=== PATIENT | male | born 1955 | race American Indian/Alaskan Native ===

== ENCOUNTER 2021-07-08 15:02 | Outpatient (CLI) | payer MEDICARE ==
[2021-07-08 15:57] LABS: INR 1.48 (0.87-1.13)
== END 2021-07-08 15:03 | disposition home or self-care (01) ==
LOC: LAB 15:02
PROVIDERS: ATTEND Internal Medicine Cardiovascular Disease
DX: I48.0 Paroxysmal atrial fibrillation (principal); Z79.01 Long term (current) use of anticoagulants
CPT/HCPCS: 36415; 85610

== ENCOUNTER 2021-07-12 08:42 | Outpatient (CLI) | payer MEDICARE ==
[2021-07-12 09:36] LABS: INR 1.66 (0.87-1.13)
== END 2021-07-12 08:43 | disposition home or self-care (01) ==
LOC: LAB 08:42
PROVIDERS: ATTEND Internal Medicine Cardiovascular Disease
DX: I48.0 Paroxysmal atrial fibrillation (principal); Z79.899 Other long term (current) drug therapy
CPT/HCPCS: 36415; 85610

== ENCOUNTER 2021-07-18 15:34 | Outpatient (CLI) | payer MEDICARE ==
[2021-07-18 16:07] LABS: INR 2.14 (0.87-1.13)
== END 2021-07-18 15:35 | disposition home or self-care (01) ==
LOC: LAB 15:34
PROVIDERS: ATTEND Internal Medicine Cardiovascular Disease
DX: I48.0 Paroxysmal atrial fibrillation (principal); Z79.01 Long term (current) use of anticoagulants
CPT/HCPCS: 36415; 85610

== ENCOUNTER 2021-07-23 13:31 | Outpatient (CLI) | payer MEDICARE ==
[2021-07-23 14:17] LABS: INR 2.71 (0.87-1.13)
== END 2021-07-23 13:32 | disposition home or self-care (01) ==
LOC: LAB 13:31
PROVIDERS: ATTEND Internal Medicine Cardiovascular Disease
DX: I48.0 Paroxysmal atrial fibrillation (principal); Z79.01 Long term (current) use of anticoagulants
CPT/HCPCS: 36415; 85610

== ENCOUNTER 2021-07-30 15:54 | Outpatient (CLI) | payer MEDICARE ==
[2021-07-30 16:29] LABS: INR 2.86 (0.87-1.13)
== END 2021-07-30 15:55 | disposition home or self-care (01) ==
LOC: LAB 15:54
PROVIDERS: ATTEND Internal Medicine Cardiovascular Disease
DX: I48.0 Paroxysmal atrial fibrillation (principal); Z79.01 Long term (current) use of anticoagulants
CPT/HCPCS: 36415; 85610

== ENCOUNTER 2021-08-07 09:34 | Outpatient (CLI) | payer MEDICARE ==
[2021-08-07 09:59] LABS: INR 2.07 (0.87-1.13)
== END 2021-08-07 09:35 | disposition home or self-care (01) ==
LOC: LAB 09:34
PROVIDERS: ATTEND Internal Medicine Cardiovascular Disease
DX: I48.0 Paroxysmal atrial fibrillation (principal); Z79.01 Long term (current) use of anticoagulants
CPT/HCPCS: 36415; 85610

== ENCOUNTER 2021-08-15 15:31 | Outpatient (CLI) | payer MEDICARE ==
[2021-08-15 16:02] LABS: INR 2.72 (0.87-1.13)
== END 2021-08-15 15:32 | disposition home or self-care (01) ==
LOC: LAB 15:31
PROVIDERS: ATTEND Internal Medicine Cardiovascular Disease
DX: I48.0 Paroxysmal atrial fibrillation (principal); Z79.01 Long term (current) use of anticoagulants
CPT/HCPCS: 36415; 85610

== ENCOUNTER 2021-08-19 11:36 | Outpatient (CLI) | payer MEDICARE ==
[2021-08-19 12:32] LABS: INR 3.17 (0.87-1.13)
== END 2021-08-19 11:37 | disposition home or self-care (01) ==
LOC: LAB 11:36
PROVIDERS: ATTEND Internal Medicine Cardiovascular Disease
DX: I48.0 Paroxysmal atrial fibrillation (principal); Z79.01 Long term (current) use of anticoagulants
CPT/HCPCS: 36415; 85610

== ENCOUNTER 2021-08-26 09:29 | Outpatient (CLI) | payer MEDICARE ==
[2021-08-26 10:05] LABS: INR 3.26 (0.87-1.13)
== END 2021-08-26 09:30 | disposition home or self-care (01) ==
LOC: LAB 09:29
PROVIDERS: ATTEND Internal Medicine Cardiovascular Disease
DX: I48.0 Paroxysmal atrial fibrillation (principal); Z79.01 Long term (current) use of anticoagulants
CPT/HCPCS: 36415; 85610

== ENCOUNTER 2021-09-03 09:31 | Outpatient (CLI) | payer MEDICARE ==
[2021-09-03 10:14] LABS: INR 2.99 (0.87-1.13)
== END 2021-09-03 09:32 | disposition home or self-care (01) ==
LOC: LAB 09:31
PROVIDERS: ATTEND Internal Medicine Cardiovascular Disease
DX: I48.0 Paroxysmal atrial fibrillation (principal); Z79.01 Long term (current) use of anticoagulants
CPT/HCPCS: 36415; 85610

== ENCOUNTER 2021-09-10 09:33 | Outpatient (CLI) | payer MEDICARE ==
[2021-09-10 10:24] LABS: INR 2.53 (0.87-1.13)
== END 2021-09-10 09:34 | disposition home or self-care (01) ==
LOC: LAB 09:33
PROVIDERS: ATTEND Internal Medicine Cardiovascular Disease
DX: I48.0 Paroxysmal atrial fibrillation (principal); Z79.01 Long term (current) use of anticoagulants
CPT/HCPCS: 36415; 85610

== ENCOUNTER 2021-09-23 09:05 | Outpatient (CLI) | payer MEDICARE ==
[2021-09-23 09:44] LABS: INR 1.21 (0.87-1.13)
== END 2021-09-23 09:06 | disposition home or self-care (01) ==
LOC: LAB 09:05
PROVIDERS: ATTEND Internal Medicine Cardiovascular Disease
DX: I48.0 Paroxysmal atrial fibrillation (principal); Z79.01 Long term (current) use of anticoagulants
CPT/HCPCS: 36415; 85610

== ENCOUNTER 2021-09-27 08:31 | Outpatient (CLI) | payer MEDICARE ==
[2021-09-27 09:20] LABS: INR 1.64 (0.87-1.13)
[2021-09-27 11:58] LABS: Hematocrit 27.6 % (35.5-45.6); Hemoglobin 8.4 gm/dl (11.8-15.2); Mean Corpuscular HGB Conc 31 % (32-34); Platelet Count 219 K/mm3 (140-440); Red Blood Count 4.19 M/mm3 (3.65-5.03); Red Cell Distribution Width 19.3 % (13.2-15.2)
[2021-09-27 12:01] LABS: Mean Corpuscular Volume 66 fl (84-94)
== END 2021-09-27 08:32 | disposition home or self-care (01) ==
LOC: LAB 08:31
PROVIDERS: ATTEND Internal Medicine Cardiovascular Disease
DX: I48.0 Paroxysmal atrial fibrillation (principal); Z00.00 Encounter for general adult medical examination without abnormal findings
CPT/HCPCS: 36415; 85027; 85610

== ENCOUNTER 2021-10-02 08:15 | Outpatient (CLI) | payer MEDICARE ==
[2021-10-02 09:15] LABS: INR 2.53 (0.87-1.13)
== END 2021-10-02 08:16 | disposition home or self-care (01) ==
LOC: LAB 08:15
PROVIDERS: ATTEND Internal Medicine Cardiovascular Disease
DX: I48.0 Paroxysmal atrial fibrillation (principal); Z79.01 Long term (current) use of anticoagulants
CPT/HCPCS: 36415; 85610

== ENCOUNTER 2021-10-08 11:16 | Outpatient (CLI) | payer MEDICARE ==
[2021-10-08 11:52] LABS: INR 3.17 (0.87-1.13)
== END 2021-10-08 11:17 | disposition home or self-care (01) ==
LOC: LAB 11:16
PROVIDERS: ATTEND Internal Medicine Cardiovascular Disease
DX: I48.0 Paroxysmal atrial fibrillation (principal); Z79.01 Long term (current) use of anticoagulants
CPT/HCPCS: 36415; 85610

== ENCOUNTER 2021-10-15 08:11 | Outpatient (CLI) | payer MEDICARE ==
[2021-10-15 08:53] LABS: INR 3.68 (0.87-1.13)
== END 2021-10-15 08:12 | disposition home or self-care (01) ==
LOC: LAB 08:11
PROVIDERS: ATTEND Internal Medicine Cardiovascular Disease
DX: I48.0 Paroxysmal atrial fibrillation (principal); Z79.01 Long term (current) use of anticoagulants
CPT/HCPCS: 36415; 85610

== ENCOUNTER 2021-10-23 07:19 | Outpatient (CLI) | payer MEDICARE ==
[2021-10-23 07:52] LABS: INR 2.98 (0.87-1.13)
== END 2021-10-23 07:20 | disposition home or self-care (01) ==
LOC: LAB 07:19
PROVIDERS: ATTEND Internal Medicine
DX: I48.0 Paroxysmal atrial fibrillation (principal); Z79.01 Long term (current) use of anticoagulants
CPT/HCPCS: 36415; 85610

== ENCOUNTER 2021-10-28 08:50 | Outpatient (CLI) | payer MEDICARE ==
[2021-10-28 09:48] LABS: INR 1.77 (0.87-1.13)
== END 2021-10-28 08:51 | disposition home or self-care (01) ==
LOC: LAB 08:50
PROVIDERS: ATTEND Internal Medicine Cardiovascular Disease
DX: I48.0 Paroxysmal atrial fibrillation (principal); Z79.01 Long term (current) use of anticoagulants
CPT/HCPCS: 36415; 85610

== ENCOUNTER 2021-11-11 07:33 | Outpatient (CLI) | payer MEDICARE ==
[2021-11-11 08:11] LABS: INR 2.39 (0.87-1.13)
== END 2021-11-11 07:34 | disposition home or self-care (01) ==
LOC: LAB 07:33
PROVIDERS: ATTEND Internal Medicine
DX: I48.0 Paroxysmal atrial fibrillation (principal); Z79.01 Long term (current) use of anticoagulants
CPT/HCPCS: 36415; 85610

== ENCOUNTER 2021-11-18 08:09 | Outpatient (CLI) | payer MEDICARE ==
[2021-11-18 10:51] LABS: INR 2.18 (0.87-1.13)
== END 2021-11-18 08:10 | disposition home or self-care (01) ==
LOC: LAB 08:09
PROVIDERS: ATTEND Internal Medicine Cardiovascular Disease
DX: I48.0 Paroxysmal atrial fibrillation (principal); Z79.01 Long term (current) use of anticoagulants
CPT/HCPCS: 36415; 85610

== ENCOUNTER 2021-11-25 09:36 | Outpatient (CLI) | payer MEDICARE ==
[2021-11-25 10:07] LABS: INR 2.46 (0.87-1.13)
== END 2021-11-25 09:37 | disposition home or self-care (01) ==
LOC: LAB 09:36
PROVIDERS: ATTEND Internal Medicine Cardiovascular Disease
DX: I48.0 Paroxysmal atrial fibrillation (principal); Z79.01 Long term (current) use of anticoagulants
CPT/HCPCS: 36415; 85610

== ENCOUNTER 2021-12-02 08:25 | Outpatient (CLI) | payer MEDICARE ==
[2021-12-02 10:12] LABS: INR 2.94 (0.87-1.13)
== END 2021-12-02 08:26 | disposition home or self-care (01) ==
LOC: LAB 08:25
PROVIDERS: ATTEND Internal Medicine Cardiovascular Disease
DX: I48.0 Paroxysmal atrial fibrillation (principal); Z79.01 Long term (current) use of anticoagulants
CPT/HCPCS: 36415; 85610

== ENCOUNTER 2021-12-09 08:57 | Outpatient (CLI) | payer MEDICARE ==
[2021-12-09 09:56] LABS: INR 2.65 (0.87-1.13)
== END 2021-12-09 08:58 | disposition home or self-care (01) ==
LOC: LAB 08:57
PROVIDERS: ATTEND Internal Medicine Cardiovascular Disease
DX: I48.0 Paroxysmal atrial fibrillation (principal); Z79.01 Long term (current) use of anticoagulants
CPT/HCPCS: 36415; 85610

== ENCOUNTER 2021-12-16 08:42 | Outpatient (CLI) | payer MEDICARE ==
[2021-12-16 09:29] LABS: INR 1.96 (0.87-1.13)
== END 2021-12-16 08:43 | disposition home or self-care (01) ==
LOC: LAB 08:42
PROVIDERS: ATTEND Internal Medicine Cardiovascular Disease
DX: I48.0 Paroxysmal atrial fibrillation (principal); Z79.01 Long term (current) use of anticoagulants
CPT/HCPCS: 36415; 85610

== ENCOUNTER 2021-12-23 09:19 | Outpatient (CLI) | payer MEDICARE ==
[2021-12-23 09:59] LABS: INR 2.16 (0.87-1.13)
== END 2021-12-23 09:20 | disposition home or self-care (01) ==
LOC: LAB 09:19
PROVIDERS: ATTEND Internal Medicine Cardiovascular Disease
DX: I48.0 Paroxysmal atrial fibrillation (principal); Z79.01 Long term (current) use of anticoagulants
CPT/HCPCS: 36415; 85610

== ENCOUNTER 2021-12-30 07:58 | Outpatient (CLI) | payer MEDICARE ==
[2021-12-30 11:02] LABS: INR 2.2 (0.87-1.13)
== END 2021-12-30 07:59 | disposition home or self-care (01) ==
LOC: LAB 07:58
PROVIDERS: ATTEND Internal Medicine Cardiovascular Disease
DX: I48.0 Paroxysmal atrial fibrillation (principal); Z79.01 Long term (current) use of anticoagulants
CPT/HCPCS: 36415; 85610

== ENCOUNTER 2022-01-07 08:06 | Outpatient (CLI) | payer MEDICARE ==
[2022-01-07 08:57] LABS: INR 2.43 (0.87-1.13)
== END 2022-01-07 08:07 | disposition home or self-care (01) ==
LOC: LAB 08:06
PROVIDERS: ATTEND Internal Medicine Cardiovascular Disease
DX: I48.0 Paroxysmal atrial fibrillation (principal); Z79.01 Long term (current) use of anticoagulants
CPT/HCPCS: 36415; 85610

== ENCOUNTER 2022-01-13 08:45 | Outpatient (CLI) | payer MEDICARE ==
[2022-01-13 10:40] LABS: INR 1.61 (0.87-1.13)
== END 2022-01-13 08:46 | disposition home or self-care (01) ==
LOC: LAB 08:45
PROVIDERS: ATTEND Internal Medicine Cardiovascular Disease
DX: I48.0 Paroxysmal atrial fibrillation (principal); Z79.01 Long term (current) use of anticoagulants
CPT/HCPCS: 36415; 85610

== ENCOUNTER 2022-01-16 09:10 | Outpatient (CLI) | payer MEDICARE ==
[2022-01-16 10:30] LABS: INR 2.01 (0.87-1.13)
== END 2022-01-16 09:11 | disposition home or self-care (01) ==
LOC: LAB 09:10
PROVIDERS: ATTEND Internal Medicine Cardiovascular Disease
DX: I48.0 Paroxysmal atrial fibrillation (principal); Z79.01 Long term (current) use of anticoagulants
CPT/HCPCS: 36415; 85610

== ENCOUNTER 2022-01-27 08:34 | Outpatient (CLI) | payer MEDICARE ==
[2022-01-27 09:53] LABS: INR 3.86 (0.87-1.13)
== END 2022-01-27 08:35 | disposition home or self-care (01) ==
LOC: LAB 08:34
PROVIDERS: ATTEND Internal Medicine Cardiovascular Disease
DX: I48.0 Paroxysmal atrial fibrillation (principal); Z79.01 Long term (current) use of anticoagulants
CPT/HCPCS: 36415; 85610